=== PATIENT | male | born 1940 | race Caucasian/White ===

== ENCOUNTER → 2018-05-25 | Outpatient (CLI) | payer OTHER | LOC: FIMAGING 18:11 | PROVIDERS: ATTEND Internal Medicine | DX: R41.3 Other amnesia (principal); G31.9 Degenerative disease of nervous system, unspecified ==

== ENCOUNTER 2018-09-25 20:17 | Inpatient (IN) | payer OTHER ==
--- NOTE | 2018-09-25 20:25 | EDPHY ---
H & P Time Seen by Provider: 09/25/18 20:23 - Medical/Surgical History Other PMH: cholesterol - Social History Smoking Status: Never smoked Allergies/Adverse Reactions: Sulfa (Sulfonamide Antibiotics) Allergy (Verified 12/18/15 09:30) Home Medications: Medication Instructions Recorded ASPIRIN 12/18/15 Atorvastatin Calcium 12/18/15 Bystolic 12/18/15 Indomethacin [Indocin 25 mg (RX)] 50 mg PO TID PRN #50 cap 12/18/15 Viagra 12/18/15 traZODone 12/18/15
--- NOTE | 2018-09-25 20:53 | EDPHY ---
H & P Stated Complaint: standing @ republican felt dizzy then passed out- states he knew it was coming Time Seen by Provider: 09/25/18 20:23 HPI/ROS: CHIEF COMPLAINT: Syncope HISTORY OF PRESENT ILLNESS: This is an 78-year-old male who complains of a syncope event. He was that a 1949s seemed republican and been standing for prolonged period of time. He had had a half a glass of wine at the time. He recalls feeling particularly unwell with sense of things going black, that he was going to collapse and lose balance and fall from a standing position. Next moment he is on the ground with people standing over him. Bystanders who were not available for interview report him to being pale. He does not recall having any palpitations or chest discomfort. He was not diaphoretic. This actually happened yesterday in a similar fashion but not as bad. He has been at a standing out in the field for 45 min and attempted in the walk back toward the car. Fortunately for him he was with a friend who caught him as he was healing over. The friend at that time had reported that he was pale as well. Again, the patient does not recall call feeling on well with respect to palpitations chest pain diaphoresis or shortness of breath. This past week things have been going well for him. He has had no nausea vomiting or diarrhea. There has been no blood in the stool. He states that his mouth is dry but it has been pretty bad so for the last 2-4 weeks. 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 I have checked the old charts and this is unavailable to his through the computer system at this point in time REVIEW OF SYSTEMS: Constitutional: No fever, no chills. Eyes: No discharge ENT: No sore throat. Cardiovascular: No chest pain, no palpitations. Respiratory: No cough, shortness of breath, or wheezing. 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 Musculoskeletal: No back pain. Skin: No rashes. Neurological: No headache. A 10 system review of systems was performed and is negative except for the noted findings in the HPI. Source: Patient, Family Exam Limitations: No limitations - Personal History Current Tetanus Diphtheria and Acellular Pertussis (TDAP): Yes - Medical/Surgical History Hx Asthma: No Hx Chronic Respiratory Disease: No Hx Diabetes: No Hx Cardiac Disease: Yes Hx Renal Disease: No Hx Cirrhosis: No Hx Alcoholism: No Hx HIV/AIDS: No Hx Splenectomy or Spleen Trauma: No Other PMH: cholesterol/ vocal cord surg/. 2012-Cholesterol score 70th percentile - Family History Significant Family History: No pertinent family hx - Social History Smoking Status: Never smoked Alcohol Use: Occasionally Drug Use: None - Physical Exam Exam: General Appearance: Alert, no distress. Afebrile. Normal phonation. No respiratory distress. Eyes: Pupils equal and round no pallor or injection. No icterus ENT, Mouth: Mucous membranes moderately dry Pharynx without erythema or exudate. TM Clear. Neck: No adenopathy. Supple. No JVD. Trachea in midline. Respiratory: There are no retractions, lungs are clear to auscultation. Chest wall: Nontender to palpation. No crepitus. Cardiovascular: Regular rate and rhythm, with g1/6 m at ULSB, holosystolic. Abdomen: Soft and nontender, no masses, bowel sounds normal. Femoral pulses equal. Neurological: Ox3. No motor weakness. Sensation intact. Gait nl. Skin: Warm and dry, no rashes. Musculoskeletal: No joint swelling. Extremities: No edema. Homans sign negative. No cords. Psychiatric: Normal affect. Patient is oriented X 3. There is no agitation Constitutional: Initial Vital Signs Heart Rate 60 09/25/18 20:24 Blood Pressure 119/62 09/25/18 20:24 O2 Delivery Mode Room Air Allergies/Adverse Reactions: Sulfa (Sulfonamide Antibiotics) Allergy (Verified 12/18/15 09:30) Home Medications: Medication Instructions Recorded ASPIRIN 12/18/15 Atorvastatin Calcium 12/18/15 Bystolic 12/18/15 Indomethacin [Indocin 25 mg (RX)] 50 mg PO TID PRN #50 cap 12/18/15 Viagra 12/18/15 Medical Decision Making - Diagnostics EKG Interpretation: EKG: Interpreted by me contemporaneously. Rhythm: Normal sinus rhythm. Heart rate 56 QTc 419 QRS: normal STT segment: normal T Waves: Normal Q waves none Summary: Normal Ekg, though P are short at 0.60 Imaging Results: Imaging Impressions Chest X-Ray 09/25/18 21:16 Impression: Central bronchitis; otherwise negative chest. Eventration right hemidiaphragm.. Above interpretation by the radiologist as noted. Films reviewed by me on the PACS system. No signs of cardiomegaly ED Course/Re-evaluation: The patient was placed on the monitoring analyst and observed. His orthostatic BP checks were essentially unchanged however there was approximately a 15 mm systolic blood pressure dropped, he was asymptomatic at the time Laboratory evaluations included: CBC normal Electrolytes normal Troponin undetectable Chest x-ray: no signs of cardiac enlargement, though he does have an elevated right hemidiaphragm. Is placed on the monitor here and there is no evidence of any ectopy or pauses. Case was discussed with Dr. Perez, who is on-call for the hospitalist team at the [facility]. He has been accepted in transfer for observation status to the monitored unit for this syncope. Differential Diagnosis: Diagnostic considerations include, but are not limited to, the following, 5this represents a partial list of diagnoses considered These considerations are based on history, physical exam, past history, reassessment and diagnostic testing: Vasovagal syncope, untoward effects of alcohol in the elderly, Crystal Napoles - Data Points Laboratory Results: 09/25/18 09/25/18 21:06 21:03 POC Sodium 141 mEq/L mEq/L (135-145) POC Potassium 3.9 mEq/L mEq/L (3.3-5.0) POC Chloride 103.0 mEq/L mEq/L (97-110) POC Total CO2 28 mEq/L mEq/L (22-31) POC BUN 15 mg/dL mg/dL (7-23) POC Creatinine 1.0 mg/dL mg/dL (0.7-1.3) POC Glucose 121 mg/dL H mg/dL (70-100) POC Calcium 9.5 mg/dL mg/dL (8.5-10.4) POC Troponin I 0.01 ng/mL ng/mL (0.00-0.08) Point of Care Test Results: CBC CBC Collection Date 09/25/18 CBC Collection Time 20:55 WBC 5.45 RBC 4.84 HGB 14.3 HCT 42.6 PLT 156 Neut # 3.97 Neut 72.9 LYMPH # 0.83 LYMPH 15.2 MCV 88 Chemistry 09/25/18 09/25/18 21:06 21:03 POC Sodium 141 mEq/L mEq/L (135-145) POC Potassium 3.9 mEq/L mEq/L (3.3-5.0) POC Chloride 103.0 mEq/L mEq/L (97-110) POC Total CO2 28 mEq/L mEq/L (22-31) POC BUN 15 mg/dL mg/dL (7-23) POC Creatinine 1.0 mg/dL mg/dL (0.7-1.3) POC Glucose 121 mg/dL H mg/dL (70-100) POC Calcium 9.5 mg/dL mg/dL (8.5-10.4) POC Troponin I 0.01 ng/mL ng/mL (0.00-0.08) Departure - Departure Disposition: [facility] Acute Clinical Impression: Syncope and collapse Condition: Fair
--- NOTE | 2018-09-25 20:55 | CPEKG ---
Test Reason : OPEN Blood Pressure : / mmHG Vent. Rate : 056 BPM Atrial Rate : 060 BPM P-R Int : 060 ms QRS Dur : 098 ms QT Int : 434 ms P-R-T Axes : 068 073 052 degrees QTc Int : 419 ms Sinus rhythm Short [place] interval Confirmed by Tru Webster ([id number]) on 09/25/2018 8:54:54 PM Referred By: Tru Webster Confirmed By:Tru Webster
--- NOTE | 2018-09-26 00:25 | PDGENHP ---
History and Physical - Chief Complaint Syncope - History of Present Illness 78 M w/ hx of CAD and HLD presents after syncopal episode. The patient was at a democrat tonight and was standing for about an hour. He had a glass of wine as well. He thinks he turned around too quickly and suffered a syncopal episode. This was brief and he returned to baseline mental status quickly. He denies chest pain or palpitations surrounding the episode. In addition, he denies any symptoms of recent illness such as fever, vomiting, diarrhea, dysuria, etc. He tells me his PO intake has been normal as of late. Of note, he had a similar episode occur yesterday after standing for 45 minutes at a . His work-up in the ED is reassuring and he is being admitted for observation. Case discussed with Dr. Sun; records reviewed and summarized above. History Information - Allergies/Home Medication List Allergies/Adverse Reactions: Sulfa (Sulfonamide Antibiotics) Allergy (Verified 12/18/15 09:30) Home Medications: ASPIRIN 12/18/15 [Last Taken Unknown] Atorvastatin Calcium 12/18/15 [Last Taken Unknown] Bystolic 12/18/15 [Last Taken Unknown] Viagra 12/18/15 [Last Taken Unknown] I have personally reviewed and updated: family history, medical history - Past Medical History coronary artery disease, hyperlipidemia - Surgical History Reports: hernia repair - Family History Additional family history: CHF - Social History Smoking Status: Never smoked Alcohol Use: Occasionally Drug Use: None Review of Systems Review of Systems: ROS: 10pt was reviewed & negative except for what was stated in HPI & below Physical Exam Physical Exam: Temp Pulse Resp BP Pulse Ox 36.6 C 55 L 20 118/62 95 09/25/18 22:54 09/25/18 23:37 09/25/18 23:37 09/25/18 23:37 09/25/18 23:37 Constitutional: no apparent distress, not in pain Eyes: PERRL, EOMI Ears, Nose, Mouth, Throat: moist mucous membranes, no oral mucosal ulcers Cardiovascular: regular rate and rhythym, systolic murmur (3/6, RUSB) Respiratory: no respiratory distress, no rales or rhonchi Gastrointestinal: normoactive bowel sounds, soft, non-tender abdomen Skin: warm, normal color Musculoskeletal: full muscle strength, no muscle tenderness Neurologic: AAOx3, CN II-XII Intact Psychiatric: interacting appropriately, not anxious Lab Data & Imaging Review POC Sodium 141 mEq/L (135-145) 09/25/18 21:03 POC Potassium 3.9 mEq/L (3.3-5.0) 09/25/18 21:03 POC Chloride 103.0 mEq/L (97-110) 09/25/18 21:03 POC Total CO2 28 mEq/L (22-31) 09/25/18 21:03 POC BUN 15 mg/dL (7-23) 09/25/18 21:03 POC Creatinine 1.0 mg/dL (0.7-1.3) 09/25/18 21:03 POC Glucose 121 mg/dL (70-100) H 09/25/18 21:03 POC Calcium 9.5 mg/dL (8.5-10.4) 09/25/18 21:03 POC Troponin I 0.01 ng/mL (0.00-0.08) 09/25/18 21:06 Imaging Review: Imaging Impressions Chest X-Ray 09/25/18 21:16 Impression: Central bronchitis; otherwise negative chest. Eventration right hemidiaphragm.. Visualized and Interpreted EKG results: Yes EKG Interpretation: Positive for: normal sinsus rhythm Assessment & Plan Assessment: 78 yo M w/ hx of CAD and HLD presents with syncope. Plan: 1. Syncope - Occurred on two consecutive nights after prolonged periods of standing. The patient denies chest pain, palpitations, or other concerning symptoms. His ECG (personally reviewed/interpreted) is in NSR without ischemia and laboratory work-up is reassuring. Exam is notable for significant systolic murmur concerning for aortic stenosis. - Observe in PCU - Monitor on telemetry - Will obtain TTE to evaluate murmur 2. Hx CAD - Follows with Dr. Wilkes as an outpatient. He is on Bystolic and a statin as an outpatient. - Continue home medications pending reconciliation 3. HLD - Continue statin Diet - Regular Code - Full Ppx - LMWH Dispo - Admit under observation status
[2018-09-26] MEDS ORDERED: ONDANSETRON DISINTEGRATING 4 MG TAB PO PRN (00:29)
[2018-09-26] MEDS ORDERED: ONDANSETRON 4 MG/2 ML VIAL IVP PRN (00:29)
[2018-09-26 04:13] LABS: PLATELET COUNT 143 10^3/uL (150-400)
[2018-09-26] MEDS: ENOXAPARIN 40 MG/0.4 ML SYR SC SCH (09:05)
--- NOTE | 2018-09-26 11:10 | ECHO ---
[email or web address] [address] [address] Main: [phone] Echocardiography Examination Transthoracic Name: CANDICE LEACH MR#: [id number] Study Date: 09/26/2018 Study Time: 09:46 AM Date of : 1940 Age: 78 year(s) Height: 185.4 cm (73 in.) Weight: 69.85 kg (154 lb.) BSA: 1.93 m2 Gender: Male Examination: Echo Contrast: Image Quality: Technically Difficult Rhythm: Heart Rate: BP: 125 mmHg/66 mmHg Indication: Cardiac: syncope, Murmur Procedure Staff Referring Physician: Business Travel Consultant: Silvana Graves [facility] [[email or web address]] Reading Physician: Eber Ortiz MD Requesting Provider: Ordering Physician: Rod Pulido Indication: Cardiac: syncope, Murmur Measurements Chambers AV/MV Label Value Normal Value Label Value Normal Value LVOTd 1.8 cm (1.9cm - 2.1cm) AV PGmax 20 mmHg LVOT VTI 27.2 cm (18cm - 22cm) AV PGmean 13 mmHg LVDd, 2D 3.4 cm (4.2cm - 5.9cm) AV Vmax 2.2 m/s LVDs, 2D 2.5 cm (2.1cm - 4cm) ROMEL (VTI) 1.6 cm2 IVSd, 2D 1.2 cm (0.6cm - 1.1cm) MV E Vmax 0.89 m/s LVPWd, 2D 1.2 cm (0.6cm - 1cm) MV A Vmax 0.67 m/s LVEF, 2D 55 % (54% - 74%) MV E/A 1.33 LVOT PGmean 3 mmHg MV E/E' lateral 10.2 LVOT Vmean 0.77 m/s MV E/E' septal 10.1 (0.45 - 1.25) RVDd, 2D 3.2 cm (1.9cm - 3.8cm) MV DT 239 ms LADs, 2D 3.5 cm (3cm - 4cm) MV E' septal 0.09 m/s Additional Vessels MV PHT 0.08 s Label Value Normal Value MVA PHT 2.9 cm2 AoAsc 3.7 cm MV E' lateral 0.09 m/s AoRoot, 2D 2.8 cm (1.4cm - 2.6cm) MV E/E' mean 9.89 MV PHT 76 ms MV E' mean 0.09 m/s TV/PV Label Value Normal Value Patient: CANDICE LEACH Study Date: 09/26/2018 Page 1 of 2 09:46 AM PV PGmax 2 mmHg PV Vmax, Caliper 0.66 m/s (0.6m/s - 0.9m/s) Conclusions Normal LV systolic function. Mild concentric LVH. Mild mitral regurgitation. Mild mitral annular calcification. Mildly to moderate aortic calcification with mild aortic stenosis. Mild tricuspid regurgitation. Findings Left Ventricle: Left ventricle is normal in size. Normal global systolic left ventricular function. EF range is estimated at 60 % - 65 %. There is mild concentric left ventricular hypertrophy. There are no regional wall motion abnormalities. Mild Left ventricular hypertrophy . Right Ventricle: Normal size right ventricle. Right ventricular systolic function is normal. Left Atrium: The left atrium is normal in size. Right Atrium: The right atrium is normal in size. Mitral Valve: Mitral valve appears structurally normal. Mild mitral regurgitation. There is mild mitral annular calcification. Aortic Valve: Aortic leaflets are structurally normal. No significant aortic valve regurgitation. There is mild aortic stenosis. Aortic leaflets exhibit mild to moderate calcification. Tricuspid Valve: Tricuspid valve leaflets are structurally normal. Mild tricuspid regurgitation. No tricuspid valve stenosis. Pulmonic Valve: Pulmonic valve not well visualized. Aorta: The aortic root size in 2D measures 2.8 cm. The ascending aorta measures 3.7 cm. Aorta Measurements AoRoot, 2D is 2.8 cm. Pericardium: No pericardial effusion. Exam Details Procedure Ordered: Echo Procedure Status: Routine study Image Quality: Technically Difficult Facility Location: Cardiac Echo 1 (No Signature Object) Patient: CANDICE LEACH Study Date: 09/26/2018 Page 2 of 2 09:46 AM [id number]
--- NOTE | 2018-09-26 12:04 | ASMTCASEMG ---
Living Arrangements What is your living Answers: With Spouse arrangement? Who do you live with? Discharge Plan Comments Coordination Status Comments Notes: Pt was admitted through the ED yesterday after an episode of syncope. It came after a prolonged period of standing, and half a glass of wine. He reports a similar episode the previous day following a period of standing. CM met with pt and his in his rm today. They live at home and pt is independent in all of his ADLs. He does not use any type of home services nor any assistive devices. He manages his own meds and reports that he is quite capable. No therapies have been ordered. CM will be available should needs arise. CM D/C plan: TBD, most likely home with no needs Date Signed: 09/26/2018 12:03 PM Electronically Signed By:Lianna Soto
--- NOTE | 2018-09-26 13:26 | GDS ---
[f rep st] DISCHARGE SUMMARY FINAL DIAGNOSES: 1. Syncope. 2. Mild aortic stenosis. 3. Mild bradycardia. 4. History of coronary artery disease, followed by Dr. Wilkes, with no history of interventions. HOSPITAL COURSE: This is an 78-year-old man, who presents with syncope. This happened twice in the last 2 days. Both times it occurred after prolonged episodes of standing. He had a prodrome of ligh theadedness and did not completely lose consciousness. Workup here included telemetry monitoring whi ch showed no arrhythmias, EKG which showed no cause of syncope, and cardiac enzymes x1 which was nega tive. Echocardiogram showed mild aortic stenosis. No real cause for his syncope. I do note that he has been mildly bradycardic. He is on Bystolic, and it is possible he is not having an appropriate cardiac response because of this. His blood pressures have been from 108/59 to 157/68. Because of t his, I think the most prudent course is to hold his Bystolic for now and follow him. He will follow up with Dr. Wilkes soon. Consideration should be given to longer-term cardiac monitoring as an out patient. I do not think he needs an inpatient ischemic evaluation since he has no other cardiac symp toms. He is comfortable with this plan. He is discharged in stable condition. Copy requested to: Dr. Wilkes /[id number]/MODL
--- NOTE | 2018-09-26 13:38 | ASDISCHSUM ---
Discharge Information Plan Status:Home with No Needs Medically Cleared to Leave: Discharge Date: D/C Disposition: ADT D/C Disposition:Home, Routine, Self-Care Projected Discharge Date: Transportation at D/C: Discharge Delay Reason: Follow-Up Date: Discharge Slot: Final Diagnosis: Placement Information Patient Contact Information Contact Name:EDNA Relationship: Address:[address] [address] City:[place] Alternate Phone: [facility]/Zip Code:[place] [address] Email: Financial Information Financial Class:Medicare Primary Plan Desc:MEDICARE OUTPATIENT Primary Plan Number:[id number] Secondary Plan Desc:CHLOEA Secondary Plan Number:[id number] Assessment Information [facility] Initial CM Assessment Living Arrangements What is your living Answers: With Spouse arrangement? Who do you live with? Discharge Plan Comments Coordination Status Comments Notes: Pt was admitted through the ED yesterday after an episode of syncope. It came after a prolonged period of standing, and half a glass of wine. He reports a similar episode the previous day following a period of standing. CM met with pt and his in his rm today. They live at home and pt is independent in all of his ADLs. He does not use any type of home services nor any assistive devices. He manages his own meds and reports that he is quite capable. No therapies have been ordered. CM will be available should needs arise. ELI D/C plan: TBD, most likely home with no needs Date Signed: 09/26/2018 12:03 PM Electronically Signed By:Lianna Tejada.KEY Case Management Discharge Plan Note Case Management Discharge Discharge Order Complete? Answers: Yes Patient to Obtain Answers: Independently Medications Transportation Arranged Answers: Family/Friends Discharge Comments Notes: Pt is being D/C'd to home with his Chanell. He is independent in his ADLs. No CM needs identified. Date Signed: 09/26/2018 01:36 PM Electronically Signed By:Lianna Tejada.KEY LACE LACE Length of stay for Answers: Less than 1 day current admission Acuity / Level of Answers: No Care: Did the patient have an inpatient admission? Comorbidities - select Answers: Coronary Artery Disease all that apply Score: 2 Date Signed: 09/26/2018 01:38 PM Electronically Signed By:Lianna Tejada.KEY Intervention Information
--- NOTE | 2018-09-26 14:15 | HOSPPROG ---
Hospitalist Progress Note Assessment/Plan: Alerted to poor gait by RN He had not been out of the bed since admission. He is unsure when these issues started, however it seems likely that this may have caused him to have his fall/pre syncopal events over the past few days. Assessment shows him to be very off balance. Neurologic exam shows normal strength, normal sensation, cranial nerves with possible left tongue deviation, poor left handed [id number]. He does not appear safe for discharge. Will proceed with CT non con of his head and CT angio of his head and neck. He is out of the window for any consideration of systemic tPA given no clear time of onset. Objective: Vital Signs Temp Pulse Resp BP Pulse Ox 36.8 C 59 L 18 108/59 L 91 L 09/26/18 11:45 09/26/18 11:45 09/26/18 11:45 09/26/18 11:45 09/26/18 11:45 Laboratory Results 09/26/18 03:48 09/26/18 03:48 09/25/18 09/26/18 09/27/18 05:59 05:59 05:59 Intake Total 200 Output Total 550 Balance -350 ICD10 Worksheet Patient Problems: Problems Problem Status Onset Syncope and collapse Acute
[2018-09-26] MEDS ORDERED: IOPAMIDOL (ISOVUE 370) 100 ML BTL IV ONE (14:44)
[2018-09-26] MEDS: ZOLPIDEM TARTRATE 5 MG TAB PO SCH (21:19)
[2018-09-26] MEDS: SERTRALINE HCL 50 MG TAB PO SCH (21:19)
[2018-09-27] MEDS: ASPIRIN EC 81 MG TAB PO SCH (09:43)
[2018-09-27] MEDS: ENOXAPARIN 40 MG/0.4 ML SYR SC SCH (09:43)
[2018-09-27] MEDS: ATORVASTATIN CALCIUM 20 MG TAB PO SCH (09:43)
--- NOTE | 2018-09-27 12:14 | HOSPPROG ---
Hospitalist Progress Note Assessment/Plan: # gait instability - not safe for dc home today - no CVA on MRI - unclear chronicity - cont with PT/OT, possible dc tomorrow # fall/pre-syncope - possibly d/t bradycardia? - have stopped bystolic - outpatient linq # mild # bradycardia Subjective: overall feels more steady on his feet today, but still moving very slowly Objective: Vital Signs Temp Pulse Resp BP Pulse Ox 36.6 C 60 20 113/58 L 94 09/27/18 08:00 09/27/18 08:00 09/27/18 08:00 09/27/18 08:00 09/27/18 08:00 Laboratory Results 09/26/18 03:48 09/27/18 03:56 09/26/18 09/27/18 09/28/18 05:59 05:59 05:59 Intake Total 200 700 Output Total 550 Balance -350 700 chart reviewed MRI/CTA H&N reviewed tele personally reviewed - Physical Exam Constitutional: other (elderly, moving slowly) Cardiovascular: regular rate and rhythym, no murmur, rub, or gallop Respiratory: no respiratory distress, clear to auscultation Gastrointestinal: soft, non-tender abdomen, no palpable masses, No guarding, No rebound, No distension ICD10 Worksheet Patient Problems: Problems Problem Status Onset Syncope and collapse Acute
[2018-09-27 13:03] LABS: CREATINE KINASE 64 IU/L (0-224)
[2018-09-27] MEDS: ACETAMINOPHEN 325 MG TAB PO PRN (13:26)
--- NOTE | 2018-09-27 22:02 | PDMN ---
Medical Necessity Medical necessity: Pt meets IP criteria as of 09/27/2018 per and EMMY MG-N ( Neurology GRG); los > 2 mn for ongoing workup and management of new onset gait instability as well as syncopal episode, pt is unable to complete ADL's at baseline and is unsafe to dc home at this time; requiring PT/OT, cardiac monitoring, and further workup. Hx CAD and hyperlipidemia.
[2018-09-27] MEDS: SERTRALINE HCL 50 MG TAB PO SCH (22:38)
[2018-09-27] MEDS: ZOLPIDEM TARTRATE 5 MG TAB PO SCH (22:38)
[2018-09-28] MEDS: ENOXAPARIN 40 MG/0.4 ML SYR SC SCH (09:49)
[2018-09-28] MEDS: ATORVASTATIN CALCIUM 20 MG TAB PO SCH (09:49)
[2018-09-28] MEDS: ASPIRIN EC 81 MG TAB PO SCH (09:49)
[2018-09-28] MEDS: ACETAMINOPHEN 325 MG TAB PO PRN (10:09)
[2018-09-28 11:11] VITALS: BP 114/61
--- NOTE | 2018-09-28 13:07 | ASMTCMCOM ---
CM Note CM Note Notes: .ilene of care reviewed in chart. Patient experienced sycope/near syncope. Per therapy patient will require 24 hour supervision in addition to HHC services. Referral for HHC services via [facility]. Plan: Home with HHC when medically cleared for discharge. Date Signed: 09/28/2018 01:05 PM Electronically Signed By:Shelby eHlm RN
--- NOTE | 2018-09-28 15:07 | PDIAF ---
- Diagnosis Diagnosis: Fall, pre-syncope Code Status: Full Code - Medication Management Discharge Medications: electronically signed and located in the Home Medication List. - Orders Services needed: Physical Therapy, Occupational Therapy - Follow Up Care Current Providers and Referrals: Norris Sánchez MD [Medical Doctor] - NONE *PRIMARY CARE P,. [Primary Care Provider] - As per Instructions Javan Wilkes MD [Medical Doctor] - follow up in 1 week (you should get outpatient cardiac monitoring)
--- NOTE | 2018-09-28 15:19 | ASMTCMCOM ---
CM Note CM Note Notes: Patient medically cleared for discharge to home with HHC. HHC per [facility]. Final orders in [facility]. CM available should other needs arise. Plan: Home with HHC Date Signed: 09/28/2018 03:18 PM Electronically Signed By:Shelby Helm RN
--- NOTE | 2018-09-28 16:17 | GDS ---
[f rep st] DISCHARGE SUMMARY DISCHARGE DIAGNOSES: 1. Presyncope. 2. Mild aortic stenosis. 3. Mild bradycardia. 4. History of coronary artery disease, followed by Dr. Wilkes with no interventions. 5. Gait instability. 6. Right knee and shoulder pain. 7. Suspected mild cognitive impairment. HOSPITAL COURSE: This is an 78-year-old man who was admitted after a presyncopal episode. He had 2 in 2 days, both occurred after prolonged periods of standing. Workup has been generally unremarkable. He was monitored on telemetry. He is mildly bradycardic primarily with rates in the 50s to 60s; however, he has had no longer pauses and no more significant bradycardia. He had previously been on nebivolol which I have recommended that he stop. Echocardiogram showed no real etiology for these events; however, I was initially going to discharge him on the ; however, he was noted to be very unstable on his feet. His appearance was concerning for a cerebellar CVA. MRI of his brain revealed that he had no CVA fortunately. He worked with Physical therapy and Occupational Therapy who have cleared him for home with home health care which has been ordered. I suspect that his gait and stability has been somewhat chronic, although getting history from him has been slightly difficult. On the day of discharge, he is anxious for discharge and will be accompanied home by his . I recommend that he follow up with Dr. Wilkes soon for consideration of outpatient cardiac rhythm monitoring given the 2 events and his mild bradycardia. FOLLOWUP: Dr. Wilkes or somebody else in his office in approximately 1 week for outpatient rhythm monitoring. BILLING: I spent more than 30 minutes on the day of discharge coordinating care. Copy requested to: Dr. Princess Wilkes /[id number]/MODL MTDD
== END 2018-09-28 15:38 | disposition home or self-care (01) | DRG 312 ==
LOC: CED 20:17 → CEDHOLD 21:36 → F2W 23:52 → OBSVTOIN 09-27 13:20
PROVIDERS: ADMIT Student in an Organized Health Care Education/Training Program; ATTEND Internal Medicine
DX: R55 Syncope and collapse (principal); I35.0 Nonrheumatic aortic (valve) stenosis; R00.1 Bradycardia, unspecified; I25.10 Atherosclerotic heart disease of native coronary artery without angina pectoris; R26.9 Unspecified abnormalities of gait and mobility; M25.561 Pain in right knee; M25.511 Pain in right shoulder; G31.84 Mild cognitive impairment of uncertain or unknown etiology; E78.5 Hyperlipidemia, unspecified
CPT/HCPCS: 70551-PN; 71046-PO; 80048-ER; 82607-90; 84484-ER; 85025-QW-ER; 97116-GP; 97161-GP; 97165-GO; 97530-GP; 97535-GO; 99285-ER; G0378; J1650; Q9967

== ENCOUNTER → 2018-10-08 | Outpatient (CLI) | payer OTHER | LOC: BHFA 09:00 ==